=== PATIENT | male | born 1960 | race American Indian/Alaskan Native ===

== ENCOUNTER 2019-09-24 06:24 | Emergency (ER) | payer MEDICAID ==
[2019-09-24] MEDS ORDERED: ASPIRIN 325 MG TAB PO ONE (06:30)
--- NOTE | 2019-09-24 06:53 | XRay Report ---
CHEST 1 VIEW INDICATION / CLINICAL INFORMATION: Chest Pain. COMPARISON: None available. FINDINGS: SUPPORT DEVICES: None. HEART / MEDIASTINUM: No significant abnormality. LUNGS / PLEURA: No significant pulmonary or pleural abnormality.. No pneumothorax. ADDITIONAL FINDINGS: No significant additional findings. IMPRESSION: 1. No acute findings. Signer Name: Alexander Hayes MD Signed: 09/24/2019 6:49 AM Workstation Name: [id number]
[2019-09-24 06:59] LABS: Basophils # (Auto) 0.1 K/mm3 (0.0-0.1); Basophils % (Auto) 1.1 % (0.0-1.8); Eosinophils # (Auto) 0.2 K/mm3 (0.0-0.4); Eosinophils % (Auto) 2.4 % (0.0-4.3); Hematocrit 43.8 % (35.5-45.6); Hemoglobin 15.2 gm/dl (11.8-15.2); Lymphocytes # (Auto) 4.5 K/mm3 (1.2-5.4); Lymphocytes % (Auto) 44.7 % (13.4-35.0); Mean Corpuscular HGB Conc 35 % (32-34); Mean Corpuscular Volume 97 fl (84-94); Monocytes # (Auto) 0.8 K/mm3 (0.0-0.8); Monocytes % (Auto) 7.6 % (0.0-7.3); Platelet Count 289 K/mm3 (140-440); Red Blood Count 4.52 M/mm3 (3.65-5.03); Red Cell Distribution Width 12.3 % (13.2-15.2)
[2019-09-24 07:31] LABS: BUN/Creatinine Ratio 15; Blood Urea Nitrogen 12 mg/dL (9-20); Calcium 9.6 mg/dL (8.4-10.2); Hemolysis Index 28
[2019-09-24] MEDS ORDERED: KETOROLAC 30 MG/1 ML INJ IV ONE (08:45)
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
[2019-09-24 09:28] LABS: INR 0.95 (0.87-1.13)
[2019-09-24 09:29] LABS: Partial Thromboplastin Time 29.2 Sec. (24.2-36.6)
[2019-09-24 11:01] VITALS: BP 112/76
== END 2019-09-24 11:03 | disposition home or self-care (01) ==
LOC: ED 06:24
DX: R07.89 Other chest pain (principal); F17.200 Nicotine dependence, unspecified, uncomplicated; F14.10 Cocaine abuse, uncomplicated; Z98.890 Other specified postprocedural states; Z79.899 Other long term (current) drug therapy
CPT/HCPCS: 36415; 71045; 80048; 84484; 85025; 85379; 85610; 85730; 93005; 93010; 96374; 99284; J1885

== ENCOUNTER 2021-09-10 14:25 | Emergency (ER) | payer MEDICAID ==
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
[2021-09-10 15:53] VITALS: BP 135/86
== END 2021-09-10 15:53 | disposition home or self-care (01) ==
LOC: ED 14:25
DX: R20.2 Paresthesia of skin (principal); F17.200 Nicotine dependence, unspecified, uncomplicated; F10.20 Alcohol dependence, uncomplicated
CPT/HCPCS: 82962; 99282